=== PATIENT | male | born 1975 | race Hispanic/Latino ===

== ENCOUNTER 2018-09-06 21:54 | Inpatient (IN) | payer OTHER ==
[~2018-09-06] VITALS: Ht 167.6 cm; Wt 95.7 kg
[2018-09-06 21:50] VITALS: BP 139/82
--- NOTE | 2018-09-06 21:50 | NUR ---
patient is a new admit that arrived stretcher. patient is awake and talking. denies pain or discomfort. patient has been helped into the bed. bed is in the lowest position and call rojas is within reach. will continue to monitor patient.
[~2018-09-06 21:54] MED LIST: COUMADIN5 MG PO; CRESTOR10 MG PO; LOSARTAN POTASS25 MG PO; NORCO 5-325 TA1 EACH PO; [UNRECOGNIZED DRUG - OTHER]
[2018-09-06] MEDS ORDERED: ONDANSETRON HCL INJ 2MG/ML 2ML 2 MG/ML VIAL IV PRN (22:15)
[2018-09-06] MEDS ORDERED: KETOROLAC TROMETHAMINE 30 MG/ML VIAL IV PRN (22:15)
[2018-09-06] MEDS ORDERED: MORPHINE SULFATE 2 MG/ML SYR 1ML IV PRN (22:15)
[2018-09-06] MEDS ORDERED: PROMETHAZINE 12.5MG/ NACL 0.9% 12.5 MG/50 ML BAG IV PRN (22:15)
[2018-09-06] MEDS ORDERED: MORPHINE SULFATE INJ 4 MG/ML INJ 1ML IV PRN (22:30)
[2018-09-06] MEDS: DEXTROSE 5%/0.9% SOD CHL 1,000 ML IV SCH (22:49)
[2018-09-07] VITALS: BP 117/69
[2018-09-07] MEDS ORDERED: HYDROMORPHONE 2MG/ML 2 MG/ML ML IV PRN (03:45)
--- NOTE | 2018-09-07 03:50 | NUR ---
patient has been medicated with morphine for pain. patient states medication is not effective. paged
--- NOTE | 2018-09-07 03:55 | NUR ---
returned call. received new order for dilaudid 1mg evry 4 hours as needed for pain. will continue to monitor patient for pain.
[2018-09-07 04:00] VITALS: BP 108/64
[2018-09-07 04:50] LABS: BASOPHILS # (AUTO) 0.1 (0.0-0.1); BASOPHILS % 0.6 % (0.0-1.0); EOSINOPHILS # (AUTO) 0.5 (0.0-0.4); EOSINOPHILS % 4.3 % (0.0-6.0); HEMATOCRIT 40.2 % (38.2-49.6); HEMOGLOBIN 13.7 g/dL (14.0-18.0); LYMPHOCYTES # (AUTO) 1.3 (1.0-3.2); LYMPHOCYTES % 11.8 % (18.0-39.1); MEAN CORPUSCULAR HEMOGLOBIN 30.8 pg (28-32); MEAN CORPUSCULAR HGB CONC 34.1 g/dL (31-35); MEAN CORPUSCULAR VOLUME 90.3 fL (81-99); MONOCYTES # (AUTO) 0.8 (0.2-0.8); MONOCYTES % 7.3 % (4.4-11.3); NEUTROPHILS % 75.6 % (38.7-80.0); PLATELET COUNT 182 x10e3/uL (140-360); RED BLOOD COUNT 4.45 x10e6/uL (4.3-5.7); RED CELL DISTRIBUTION WIDTH 12.6 % (11.7-14.4)
[2018-09-07 05:24] LABS: ALANINE AMINOTRANSFERASE 34 IU/L (0-55); ALBUMIN 3.6 g/dL (3.5-5.0); ALBUMIN/GLOBULIN RATIO 1.5 (0.8-2.0); ALKALINE PHOSPHATASE 43 IU/L (40-150); ANION GAP 12.7 mmol/L (8-16); BLOOD UREA NITROGEN 11 mg/dL (7-26); BUN/CREATININE RATIO 13 (6-25); CALCIUM 8.3 mg/dL (8.4-10.2); CARBON DIOXIDE 24 mmol/L (22-29); CHLORIDE 103 mmol/L (98-107); CREATININE, SERUM 0.82 mg/dL (0.72-1.25); EST GLOMERULAR FILTRATION RATE > 60 ML/MIN (60-); GLUCOSE 133 mg/dL (74-118); POTASSIUM 3.7 mmol/L (3.5-5.1); SODIUM 136 mmol/L (136-145)
--- NOTE | 2018-09-07 06:46 | NUR ---
report given to day nurse. patient is resting comfortably in bed. bed is in lowest position and call rojas is within reach.
--- NOTE | 2018-09-07 07:15 | NUR ---
PT IN BED SLEEPING NO S/S DISCOMFORT,IV PATENT
[2018-09-07 07:30] VITALS: BP 113/62
--- NOTE | 2018-09-07 07:40 | Diagnostic Imaging Report ---
EXAM: Abdomen 2 radiographs INDICATION: ^sm bowel obstruction ^[id number] ^[id number] COMPARISON: None FINDINGS: Gaseous distention of small bowel loops right abdomen. Rectal air is visualized. No definite evidence of pneumoperitoneum. Lung bases are clear. No acute osseous abnormality. IMPRESSION: Gaseous distention of small bowel loops throughout the abdomen, representing ileus versus partial small bowel obstruction. Signed by: Dr. Kraig Rogers MD on 09/07/2018 7:37 AM
[2018-09-07 08:18] VITALS: BP 113/62
[2018-09-07] MEDS: DEXTROSE 5%/0.9% SOD CHL 1,000 ML IV SCH ×2 (08:30→19:01)
[2018-09-07] MEDS ORDERED: LEVOFLOXACIN 500 MG TAB PO SCH (10:30)
[2018-09-07] MEDS: METRONIDAZOLE 500 MG TAB PO SCH ×2 (11:06→19:01)
--- NOTE | 2018-09-07 11:30 | NUR ---
PT TOLERATED CLEAR LIQUID WELL.NO C/O PAIN,
--- NOTE | 2018-09-07 12:31 | Consultation ---
DATE OF CONSULTATION: 09/07/2018 HISTORY OF PRESENT ILLNESS: The patient is a 43-year-old male, who developed mid abdominal pain yesterday afternoon. He says the pain was severe. He had associated nausea and vomited one time. He went to freestanding emergency room, where evaluation revealed findings suggestive of possible small bowel obstruction. The patient says his pain is less now. He has had previous abdominal surgery, which was laparotomy for what he says was twisted intestines and also subsequent repair of ventral hernia, this was done several years ago. At this point, the patient says he is feeling better, his pain is gone, he says he is passing flatus. PAST MEDICAL HISTORY: Otherwise unremarkable. He denies chronic medical problems. MEDICATIONS: There are no current medications. ALLERGIES: HE HAS AN ALLERGY TO IODINE AND SHELLFISH. PAST SURGICAL HISTORY: As stated above. FAMILY HISTORY: Noncontributory. SOCIAL HISTORY: The patient does not smoke cigarettes. He does drink alcohol sometimes heavily. REVIEW OF SYSTEMS: As stated above. He has had no fever or weight loss. PHYSICAL EXAMINATION: GENERAL: The patient is awake and alert, in no distress. VITAL SIGNS: Normal. He is not tachycardic. HEENT: Sclerae are nonicteric. NECK: Supple. No masses. LUNGS: Equal breath sounds are clear bilaterally. CARDIAC: Regular rate and rhythm with no murmur. ABDOMEN: Has a healed midline wound. There is no mass. There was no tenderness. It is soft and no signs of peritonitis. EXTREMITIES: Have no edema. Peripheral pulses were palpable. NEUROLOGIC: Intact. LAB TESTS: The white blood cell count on admission was elevated at 14,000, repeat is 10,000; hemoglobin and hematocrit are normal. Chemistries are essentially normal. ASSESSMENT: A 43-year-old male with abdominal pain that is now resolving. Symptoms seem to be consistent with acute gastroenteritis, possible partial intestinal obstruction, which is resolving. At this point, the patient is started on liquid diet. There are no findings that would warrant surgical intervention at this time. Thank you for asking me to see Mr. Sheridan. MD CHRISTOFER Tiwari/SEDRICK /[id number]
--- NOTE | 2018-09-07 17:06 | NUR ---
PT UP IN BED TOLERATED FULL LIQUID ,NO C/O PAIN
[2018-09-07 17:43] VITALS: BP 120/72
--- NOTE | 2018-09-07 19:00 | NUR ---
received report from day nurse. patient is resting comfortably in bed. bed is in lowest position and call rojas is within reach. will continue to monitor patients plan of care.
[2018-09-07 20:00] VITALS: BP 139/82
[2018-09-07] MEDS ORDERED: SIMVASTATIN 20 MG TAB PO SCH (21:00)
[2018-09-08] VITALS: BP 125/81
[2018-09-08] MEDS: METRONIDAZOLE 500 MG TAB PO SCH (03:51)
[2018-09-08 04:00] VITALS: BP 116/73
[2018-09-08] MEDS: DEXTROSE 5%/0.9% SOD CHL 1,000 ML IV SCH (04:21)
[2018-09-08 05:17] LABS: BASOPHILS # (AUTO) 0.1 (0.0-0.1); BASOPHILS % 0.7 % (0.0-1.0); EOSINOPHILS # (AUTO) 0.7 (0.0-0.4); EOSINOPHILS % 10.6 % (0.0-6.0); HEMATOCRIT 41.1 % (38.2-49.6); HEMOGLOBIN 13.6 g/dL (14.0-18.0); LYMPHOCYTES # (AUTO) 1.7 (1.0-3.2); LYMPHOCYTES % 24.6 % (18.0-39.1); MEAN CORPUSCULAR HEMOGLOBIN 30.8 pg (28-32); MEAN CORPUSCULAR HGB CONC 33.1 g/dL (31-35); MONOCYTES # (AUTO) 0.6 (0.2-0.8); MONOCYTES % 9.5 % (4.4-11.3); NEUTROPHILS # (AUTO) 3.7 (2.1-6.9); NEUTROPHILS % 54.3 % (38.7-80.0); PLATELET COUNT 177 x10e3/uL (140-360); RED BLOOD COUNT 4.42 x10e6/uL (4.3-5.7); RED CELL DISTRIBUTION WIDTH 12.8 % (11.7-14.4)
[2018-09-08 05:33] LABS: ANION GAP 9.2 mmol/L (8-16); BLOOD UREA NITROGEN 9 mg/dL (7-26); BUN/CREATININE RATIO 10 (6-25); CALCIUM 8.5 mg/dL (8.4-10.2); CARBON DIOXIDE 28 mmol/L (22-29); CHLORIDE 104 mmol/L (98-107); CREATININE, SERUM 0.92 mg/dL (0.72-1.25); EST GLOMERULAR FILTRATION RATE > 60 ML/MIN (60-); GLUCOSE 111 mg/dL (74-118); POTASSIUM 4.2 mmol/L (3.5-5.1); SODIUM 137 mmol/L (136-145)
--- NOTE | 2018-09-08 06:56 | NUR ---
report given to day nurse. patient is resting comfortably in bed. bed is in lowest position and call rojas is within reach.
--- NOTE | 2018-09-08 07:15 | NUR ---
PT IN BED SLEEPING NO S/S DISCOMFORT.
[2018-09-08 08:56] VITALS: BP 127/86
[2018-09-08 08:57] VITALS: BP 127/86
[2018-09-08] MEDS ORDERED: LOSARTAN POTASSIUM 25 MG TAB PO SCH (09:00)
--- NOTE | 2018-09-08 09:01 | NUR ---
DR SMITH HERE .TOLERATED DIET WELL.
[2018-09-08] MEDS ORDERED: CIPRO500 MG PO (10:05)
[2018-09-08] MEDS ORDERED: FLAGYL250 MG PO (10:05)
--- NOTE | 2018-09-08 10:05 | Discharge Summary ---
PRIMARY CARE PHYSICIAN: Dr. Jun Son. BURRER OPERATOR: Dr. Valentin Kellogg. FINAL DIAGNOSES: 1. Ileus and small bowel obstruction. 2. History of multiple abdominal hernia repair. HOSPITAL COURSE: A 43-year-old male with history of abdominal hernia repair previously. The patient came in to outpatient emergency room with abdominal pain. CT scan showed ileus and small bowel obstruction. The patient basically with conservative measure. He did not have any nausea or vomiting, therefore no NG tube was placed. The patient transferred to [facility] to continue with evaluation. The patient is doing much better. He had multiple bowel movements now and his abdomen completely soft without any pain. He is stable. Vital signs are stable as well. Advance diet, the patient already ate solid food this morning breakfast and he is doing well. No pain. No nausea or vomiting. The patient is instructed on multiple methods of treatment if recurrent symptoms of small bowel obstruction. I advised the patient that in the future he may need laparoscopic adhesiolysis. However, at this time, the patient has no indication since he is doing much better and able to tolerate his diet. The patient will go home with the following instructions. Flagyl 500 mg t.i.d. for 5 days, Cipro 5 mg b.i.d. for 5 days, Zofran ODT 4 mg sublingual q.4 h. p.r.n. for nausea and vomiting, and Tylenol No. 3 p.r.n. for pain. 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 The patient is otherwise stable, discharged home and advised the patient to follow up with his family doctor in approximately one week, sooner if needed and with Dr. Valentin Kellogg and Dr. Valentin Ogden for followup if recurrent abdominal pain with possibility for even elective exploratory laparotomy with adhesiolysis. All instructions given, the patient and his spouse expressed understanding and he will be discharged home today. MD CORNELIUS Vega/SEDRICK /[id number]
[2018-09-08] MEDS ORDERED: ZOFRAN8 MG PO (10:07)
[2018-09-08] MEDS ORDERED: TYLENOL WITH C1 EACH PO (10:07)
--- NOTE | 2018-09-08 10:24 | NUR ---
PT DISCHARGED HOME ,IV DCD WITHOUT REDNESS OR SWELLING,PRESCRIPTIONS AND INSTRUCTIONS GIVENCOPY ON CHART.TRANSPORTED TO [facility] VIA W/C
== END 2018-09-08 10:21 | disposition home or self-care (01) | DRG 390 ==
LOC: MED/SURG 21:54
PROVIDERS: ADMIT Internal Medicine; ATTEND Internal Medicine
DX: K56.690 Other partial intestinal obstruction (principal); K52.9 Noninfective gastroenteritis and colitis, unspecified
CPT/HCPCS: 36415; 74018; 80048; 80053; 85025; J2270; J2405; J7042

== ENCOUNTER → 2024-03-28 | Outpatient (REF) | payer BC ==
[~2024-03-28] MED LIST changes: +CIPRO500 MG PO; +FLAGYL250 MG PO; +TYLENOL WITH C1 EACH PO; +ZOFRAN8 MG PO
== END ==
LOC: CT 11:46
PROVIDERS: ATTEND Surgery
DX: R19.04 Left lower quadrant abdominal swelling, mass and lump (principal)
CPT/HCPCS: 72192